=== PATIENT | male | born 1960 | race African-American/Black ===

== ENCOUNTER 2017-07-19 01:27 | Emergency (ER) | payer OTHER, SELFPAY ==
--- NOTE | 2017-07-19 01:28 | DI.US.S_ITS ---
PROCEDURE: US SCROTUM INDICATIONS: Left testicular swelling TECHNIQUE: Real-time scanning was performed of the scrotum and testicles, with image documentation. Color and pulse Doppler interrogation was performed of both testicles. COMPARISON: None. 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 Normal testicular vascularity. Epididymis is normal in overall size and morphology. No hydrocele or varicoceles. Overlying scrotal skin is normal in thickness. Left: Testicle is normal in size at 2.4 x 3.0 x 3.3 cm, and homogeneous in echotexture. Left testicle is relatively hypervascular. Epididymis is normal in overall size and morphology. No hydrocele. Prominent varicocele. Overlying scrotal skin is normal in thickness. Within the scrotum inferior to the left testicle is a rounded, solid avascular mass measuring 12 x 13 x 13 mm. Doppler: Color and pulse Doppler demonstrate normal and symmetric arterial flow in both testicles. IMPRESSION: 1. No evidence of testicular torsion. 2. Left varicocele. 3. Mild hyperemia left testicle compatible with orchitis. 4. Solid intrascrotal mass inferior to the left testicle, etiology indeterminate. Urology consult suggested. Findings are concordant with the preliminary report. Dictated by: Mainor Flower M.D. on 07/19/2017 at 7:44 Approved by: Mainor Flower M.D. on 07/19/2017 at 7:50
--- NOTE | 2017-07-19 01:29 | ED_ITS ---
HPI - Male Genitourinary General Chief complaint: Urogenital-Male Stated complaint: lower left back pain/left testicle swollen Time Seen by Provider: 07/19/17 01:28 Source: patient Mode of arrival: ambulatory Limitations: no limitations History of Present Illness HPI Narrative: 56-year-old male here for evaluation of approximately 4 days of worsening left testicular pain and lower back pain. Patient denies any urinary symptoms. He states that it got to the point this evening where he was having trouble working and lifting knots were brought him into the emergency department. Patient denies any prior history of urinary tract infections. Had a history of a sexually transmitted disease approximately 1 year ago was treated for that. He is circumcised. Is sexually active. No skin changes. No bowel symptoms. Related Data Previous Rx's Medication Instructions Recorded doxycycline hyclate 100 mg PO BID 14 Days #28 tab 07/19/17 Allergies Allergy/AdvReac Type Severity Reaction Status Date / Time No Known Drug Allergies Allergy Verified 07/19/17 03:45 Review of Systems Constitutional Denies chills, Denies fever(s), Denies lethargy and Denies weakness ENT Ears, Nose, Mouth, and Throat: Denies vertigo and Denies dizziness Cardiovascular Denies chest pain, Denies irregular heart rhythm, Denies lightheadedness, Denies palpitations, Denies dyspnea, Denies dyspnea on exertion and Denies orthopnea Respiratory Denies cough, Denies dyspnea, Denies dyspnea on exertion and Denies wheezing Gastrointestinal Gastrointestinal: Denies constipation, Denies diarrhea, Denies nausea and Denies vomiting Genitourinary Denies hematuria, Denies difficulty urinating, Denies genital lesions, Reports genital pain, Denies dysuria, Denies penile discharge, Reports scrotal swelling , Reports testicular mass, Reports testicular pain, Denies urinary frequency, Denies urinary incontinence and Denies urinary urgency Musculoskeletal Denies abnormal gait, Reports back pain, Denies myalgias, Denies arthralgias, Denies muscle cramps and Denies muscle weakness Integumentary/Breasts Denies pruritus, Denies lesions, Denies rash and Denies skin pain Neurologic Denies abnormal gait, Denies behavioral changes, Denies confusion, Denies vertigo, Denies dizziness and Denies weakness Psychiatric Denies behavioral changes and Denies confusion Endocrine Denies palpitations Hematologic/Lymphatic Denies easy bruising Allergic/Immunologic Denies wheezing PFSH Family History Mother Age: 74 Essential hypertension Exam Initial Vital Signs Initial Vital Signs: Vital Signs Temperature 99.6 F 07/19/17 01:52 Pulse Rate 95 H 07/19/17 01:52 Respiratory Rate 18 07/19/17 01:52 Blood Pressure 151/99 H 07/19/17 01:52 Pulse Oximetry 100 07/19/17 01:52 Const General: cooperative and well developed Nutritional Appearance: well nourished Orientation: alert, awake, oriented x3 and not confused GI Inspection: non-distended Palpation: soft, no hepatosplenomegaly, No guarding, No pulsatile mass and No tender Auscultation: normal bowel sounds General: No CVA tenderness External: normal external exam, circumcised, no erythema, no hernia, no lacerations, no lesions and tenderness Penis: normal penis Scrotum: cremasteric reflex present, scrotal mass on the left (Located separate from the testicle) firm and tender and no scrotal swelling Testes: testicular lie normal, enlarged on the left, epididymal induration on the left, epididymal tenderness on the left, no testicular mass, testicular tenderness on the left and normal testicular lie Skin General: no rashes or lesions noted, No jaundice and No petechiae Extrem General: full ROM, no clubbing, cyanosis or edema, no pedal edema and no calf tenderness Course Orders Ordered: ED Orders 07/19/17 01:28 US scrotum Stat 07/19/17 01:45 Urinalysis and Microscopic Stat Discontinued Medications Ceftriaxone Sodium (Rocephin) 250 mg IM NOW ONE Stop: 07/19/17 03:39 Vital Signs - 8 hr 07/19/17 01:52 Temperature 99.6 F Pulse Rate 95 H Respiratory Rate 18 Blood Pressure 151/99 H Pulse Oximetry 100 MDM - Male Genitourinary Lab Data Attestation: I reviewed the patient's lab results. Lab Results 07/19/17 Range/Units 01:45 Urine Color Yellow Urine Appearance Clear Urine pH 6.5 (4.5-8.0) Ur Specific [place] 1.010 (1.000-1.035) Urine Protein Negative (Negative) Urine Glucose (UA) Negative (Normal) g/dL Urine Ketones Negative (NEGATIVE) Urine Occult Blood Negative (Negative) Urine Nitrate Negative (Negative) Urine Bilirubin Negative (NEGATIVE) Urine Urobilinogen 2.0 H (0.2) E.U./dL Ur Leukocyte Esterase Negative (NEGATIVE) Urine RBC None seen (0-5/HPF) Urine WBC None seen (0-5/HPF) Urine Bacteria None seen (None) Ur Culture Indicated? Cult not indicated Micro UA Comment Microscopic normal Imaging Data Testicular ultrasound: Radiologist's impression: No testicular torsion Increased vascularity left testes was compared with the right compatible with left orchitis. Prominent varicocele 1.3 x 1.2 x 1.3 cm solid nonvascular extratesticular mass inferior to the left testes of uncertain etiology. Urology consult recommended MDM Narrative Medical decision making narrative: Patient without signs of testicular torsion on ultrasound. Urinalysis negative for urinary tract infection. Does have a varicocele on the left. Does have physical exam and ultrasound consistent with orchitis. Had a long discussion with the patient regarding this. He states that he does have 1 sexual partner however has had a sexually transmitted disease in the past and states that it is possible that he could have another 1 now. We did discuss options to include presumptively treating him here in the emergency department for gonorrhea and chlamydia or running a culture which will take some time to come back. Patient states that he would just go ahead and treat now. He was given a shot of Rocephin here in the emergency department. Will also send home with a prescription for doxycycline. I suspect that his lower back pain is secondary to this orchitis. There is some concern with back pain and genital issues of conditions such as prostatitis. I did not do a rectal exam on him today however the doxycycline and Rocephin should cover for any type of infection such as this. Patient was also informed of the solid mass noted on the ultrasound. We did discuss that we are uncertain of the etiology of this finding. We did discuss that it is important for him to talk with his primary doctor regarding this ultrasound finding and to obtain a referral to see Urology. Patient did expressed understanding of this. He was given return precautions. Discharge Plan Departure Patient Disposition: Home, Self-Care Clinical Impression: Orchitis, Scrotal mass Instructions: DI for Orchitis Activity Restrictions/Additional Instructions: Would recommend that you take all of the antibiotics likely discussed. You do need to talk with your primary doctor regarding the findings on the ultrasound today and to discuss the indications for a consult to see Urology. Would recommend that you wear supportive clothing for the next couple days. You can take anti-inflammatories such as Motrin/ibuprofen/Naprosyn as directed. You can buy this [id number]. Return to the emergency department for any new or worsening symptoms Prescriptions: New doxycycline hyclate 100 mg tablet 100 mg PO BID 14 Days Qty: 28 RF: 0
[2017-07-19 01:52] VITALS: BP 151/99; PULSE 95; RESP 18; TEMP 37.6; O2SAT 100; BMI 23.2
[2017-07-19 02:06] LABS: Bacteria Urine None Seen; RBC Urine None Seen (0-5/HPF); WBC Urine None Seen (0-5/HPF)
[2017-07-19 02:07] LABS: Appearance Urine UA CLEAR; Bilirubin Urine UA NEGATIVE (NEGATIVE); Color Urine UA YELLOW; Glucose Urine UA NEGATIVE (Normal); Ketones Urine UA NEGATIVE (NEGATIVE); Leukocyte Esterase Urine UA NEGATIVE (NEGATIVE); Nitrite Urine UA Negative (Negative); Occult Blood Urine UA NEGATIVE (Negative); Protein Urine UA NEGATIVE (Negative); pH Urine UA 6.5 (4.5-8.0)
[2017-07-19 02:18] LABS: Culture Indicated Urine Cult Not Indicated; Urine Comments Microscopic Normal
[2017-07-19] MEDS: cefTRIAXone 500 MG VIAL 250 MG IM (04:02)
[2017-07-19 04:24] VITALS: BP 122/88; PULSE 86; RESP 18; TEMP 37.2; O2SAT 99
== END 2017-07-19 04:25 | disposition home or self-care (01) ==
PROVIDERS: Emergency Provider Emergency Medicine
DX: N45.2 Orchitis (principal); N50.9 Disorder of male genital organs, unspecified
CPT/HCPCS: 76870; 81001; 81003; 96372; 99283; 99284; J0696

== ENCOUNTER → 2017-12-17 07:25 | Outpatient (CLI) | payer OTHER, SELFPAY ==
--- NOTE | 2017-12-17 | DI.US.S_ITS ---
PROCEDURE: US SCROTUM INDICATIONS: HX SCROTAL MASS TECHNIQUE: Real-time scanning was performed of the scrotum and testicles, with image documentation. Color and pulse Doppler interrogation was performed of both testicles. COMPARISON: [facility], US SCROTUM, 07/19/2017, 2:07. FINDINGS: Right: Testicle is normal in size at 4.4 x 1.9 x 3.1 cm, and homogenous in echotexture. Epididymis is normal in overall size and morphology. No hydrocele or varicoceles. Overlying scrotal skin is normal in thickness. Left: Testicle is normal in size at 3.6 x 2.1 x 3.0 cm, and homogeneous in echotexture. Epididymis is normal in overall size and morphology. No hydrocele or varicoceles. Overlying scrotal skin is normal in thickness. Previously described mass inferior to the left testicle is not visualized on the current exam. Doppler: Color and pulse Doppler demonstrate normal and symmetric arterial flow in both testicles. IMPRESSION: 1. Normal appearance of the testicles bilaterally. 2. Today's study demonstrating no mass inferior to the left testis. Dictated by: Butch Valencia [facility] Interpreted: Azael Prado MD on 12/17/2017 at 11:30 Approved by: Azael Prado M.D. on 12/17/2017 at 12:47
== END ==
PROVIDERS: Visit Provider Urology
DX: N50.9 Disorder of male genital organs, unspecified (principal)
CPT/HCPCS: 76870

== ENCOUNTER → 2019-03-16 19:20 | Outpatient (ROUT) | payer OTHER, SELFPAY ==
[2019-03-16 19:58] LABS: BUN Creatinine Ratio 14.4 (6-22); Blood Urea Nitrogen 13 mg/dL (9-20); Calcium 9.6 mg/dL (8.4-10.2); Carbon Dioxide 26 mmol/L (22-32); Chloride 107 mmol/L (98-107); Cholesterol 179 mg/dL (140-199); Estimated Glomerular Filt Rate > 60.0 mL/min (>60); Glucose 96 mg/dL (70-100); HDL Cholesterol 42 mg/dL (40-60); HEMOLYSIS < 15 (0-50); LDL Cholesterol Calculated 117 mg/dL (<100); Sodium 142 mmol/L (137-145); Triglycerides 98 mg/dL (35-150)
[2019-03-21 14:01] LABS: PSA, Total 0.9 ng/mL (< 4.1)
== END ==
PROVIDERS: Visit Provider Internal Medicine
DX: Z13.220 Encounter for screening for lipoid disorders (principal); R35.0 Frequency of micturition; Z12.5 Encounter for screening for malignant neoplasm of prostate
CPT/HCPCS: 80048; 80061; 84153; 84154

== ENCOUNTER 2019-08-12 22:27 | Emergency (ER) | payer OTHER, SELFPAY ==
[2019-08-12 22:35] VITALS: BP 178/89; PULSE 78; RESP 20; TEMP 37.1; O2SAT 98
[2019-08-12 22:39] VITALS: BP 178/89; PULSE 78; TEMP 37.1; O2SAT 98
--- NOTE | 2019-08-12 22:41 | ED.GENADULT ---
HPI - General Adult General Chief complaint: Dental/Oral Stated complaint: tooth ache x3 days Time Seen by Provider: 08/12/19 22:30 Source: patient Mode of arrival: Ambulatory Limitations: no limitations History of Present Illness HPI narrative: 58-year-old male here for evaluation of right upper back tooth pain. He states that has been sore for the past several days. States that he does not currently have a dentist. Has tried some ibuprofen for the symptoms prior to arrival. No fevers. No problems breathing. Related Data Previous Rx's Medication Instructions Recorded penicillin V potassium 500 mg PO QID 7 Days #28 tab 08/12/19 Allergies Allergy/AdvReac Type Severity Reaction Status Date / Time No Known Drug Allergies Allergy Verified 07/19/17 03:45 Review of Systems Constitutional Constitutional: Denies chills and Denies fever(s) ENT Ears, Nose, Mouth, and Throat: Denies vertigo, Denies otalgia and Denies facial pain Comments: Right upper dental Cardiovascular Cardiovascular: Denies chest pain Integumentary/Breasts Skin/Breast: Denies lesions and Denies rash Neurologic Neurologic: Denies vertigo Hematologic/Lymphatic Hematologic/Lymphatic: Denies easy bleeding and Denies easy bruising Patient History Medical History (Updated 08/13/19 @ 01:09 by Mitchel Cobian DO) Gonorrhea (Inactive) Family History Mother Age: 76 Essential hypertension Social History Smoking Status: Never smoker Exam Initial Vital Signs Initial Vital Signs: Vital Signs Temperature 98.7 F 08/12/19 22:35 Pulse Rate 78 08/12/19 22:35 Respiratory Rate 20 08/12/19 22:35 Blood Pressure 178/89 H 08/12/19 22:35 Pulse Oximetry 98 08/12/19 22:35 Const General: cooperative and comfortable Limitations: mental status not altered HENMT Head: normal to inspection and normocephalic Ears: TM's normal bilaterally Nose: external nose normal Face and sinus: normal facial exam Mouth: oral mucosae normal Teeth and gingiva: fair dentition Throat: posterior oropharynx normal Neck Lymphatic: No lymphadenopathy Skin Lesions: no lesions Rashes: no rashes Neuro General: patient alert and patient awake Extrem General: capillary refill normal Psych Appearance: grossly normal and well kempt Course Orders Ordered: Discontinued Medications Penicillin V Potassium (Veetids) 500 mg PO NOW ONE Stop: 08/12/19 22:49 Last Admin: 08/12/19 22:53 Dose: 500 mg Documented by: RODRIGO Vital Signs Vital signs: Vital Signs - 8 hr 08/12/19 22:35 08/12/19 22:39 Temperature 98.7 F 98.7 F Pulse Rate 78 78 Respiratory Rate 20 Blood Pressure 178/89 H 178/89 H Pulse Oximetry 98 98 Medical Decision Making MDM Narrative Medical decision making narrative: Patient's physical exam is relatively unremarkable except for obvious dental disease. There is now defined abscess seen or felt on the exam that would require incision and drainage here in the ER. Will start the patient on antibiotics. Is given his 1st dose here. Is given a prescription for the remainder. Informed him that he should follow up with a dentist. He is given information regarding this. Is given return precautions. Expressed understanding and agreement. Discharge Plan Departure Patient Disposition: Home Clinical Impression: Pain, dental Discharge Date/Time: 08/12/19 22:57 Instructions: DI for Dental Pain Activity Restrictions/Additional Instructions: It is important that you make contact and follow up with a dentist. Your 1st dose of antibiotics was given here in the ER. Your next dose will be the morning of 08/13/19. Contact your primary provider for follow-up. Return to the emergency department for any new or worsening symptoms Prescriptions: New penicillin V potassium 500 mg tablet 500 mg PO QID 7 Days Qty: 28 RF: 0
[2019-08-12] MEDS: PENICILLIN VK 250 MG TABLET 500 MG PO (22:53)
== END 2019-08-12 22:57 | disposition home or self-care (01) ==
PROVIDERS: Emergency Provider Emergency Medicine
DX: K08.89 Other specified disorders of teeth and supporting structures (principal)
CPT/HCPCS: 99282; 99283

== ENCOUNTER → 2020-05-21 09:09 | Outpatient (CLI) | payer OTHER, SELFPAY ==
[2020-05-21] MEDS: COVID-19 VACC #1, MRNA(MOD) 100 MCG/0.5 ML VIAL IM (09:33)
== END ==
PROVIDERS: Visit Provider Internal Medicine
DX: Z23 Encounter for immunization (principal)
CPT/HCPCS: 0011A; 91301

== ENCOUNTER → 2020-06-20 10:43 | Outpatient (CLI) | payer OTHER, SELFPAY ==
[2020-06-20] MEDS: COVID-19 VACC #2, MRNA(MOD) 100 MCG/0.5 ML VIAL IM (10:55)
== END ==
PROVIDERS: Visit Provider Internal Medicine
DX: Z23 Encounter for immunization (principal)
CPT/HCPCS: 0012A; 91301

== ENCOUNTER 2021-09-21 09:15 | Emergency (ER) | payer OTHER, SELFPAY ==
[2021-09-21 09:22] VITALS: BP 165/90; PULSE 60; RESP 16; TEMP 37.2; O2SAT 97; BMI 23.0
[2021-09-21 09:40] LABS: Appearance Urine UA CLEAR; Bilirubin Urine UA NEGATIVE (NEGATIVE); Color Urine UA YELLOW; Glucose Urine UA NEGATIVE (Negative); Ketones Urine UA NEGATIVE (NEGATIVE); Leukocyte Esterase Urine UA 3+ (NEGATIVE); Nitrite Urine UA NEGATIVE (Negative); Occult Blood Urine UA 1+ (Negative); Protein Urine UA NEGATIVE (Negative); Specific Gravity Urine UA <=1.005 (1.000-1.035); Urobilinogen Urine UA 0.2 E.U./dL (0.2); pH Urine UA 5.5 (4.5-8.0)
[2021-09-21 09:41] LABS: Bacteria Urine None Seen; Culture Indicated Urine Specimen Cultured; RBC Urine 5-10/HPF (0-5/HPF); Squamous Epithelial Cell Urine 1-5 /HPF (0-5/HPF); WBC Urine >100/HPF (0-5/HPF)
--- NOTE | 2021-09-21 10:01 | ED_ITS ---
HPI - Male Genitourinary General Chief complaint: Urogenital-Male Stated complaint: might have STD Time Seen by Provider: 09/21/21 09:27 History of Present Illness HPI Narrative: Patient is a healthy 61-year-old male who presents with discharge from his penis through last 2 days. She has a does hurt when he urinates. He previously had infection of chlamydia. Reports having sex with females. He says this is not a new partner. No other symptoms. He denies any rash. He denies any testicular pain or swelling Related Data Previous Rx's Medication Instructions Recorded doxycycline hyclate 100 mg capsule 100 mg PO BID #14 caps 09/21/21 Allergies Allergy/AdvReac Type Severity Reaction Status Date / Time No Known Drug Allergies Allergy Verified 07/19/17 03:45 Review of Systems Review of Systems Narrative: GENERAL: Denies chills,fever HEENT: Denies throat pain RESPIRATORY: Denies dyspnea, cough, wheezing CARDIOVASCULAR: Denies chest pain, palpitations : See HPI GASTROINTESTINAL: Denies nausea, vomiting MUSCULOSKELETAL: Denies extremity pain, injury SKIN: No rash, no laceration, no pruritus NEUROLOGIC: Denies weakness, dizziness, headache, numbness 8 point review of systems is negative except for those stated above and HPI Patient History Medical History Gonorrhea Family History Mother Age: 78 Essential hypertension Social History Smoking Status: Never smoker Smoking Status: Never smoker alcohol intake frequency: a few times a week Substance Use Type: does not use Exam Initial Vital Signs Initial Vital Signs: Vital Signs Temperature 98.9 F 09/21/21 09:22 Pulse Rate 60 09/21/21 09:22 Respiratory Rate 16 09/21/21 09:22 Blood Pressure 165/90 H 09/21/21 09:22 Pulse Oximetry 97 09/21/21 09:22 Oxygen Delivery Method 09/21/21 09:22 GENERAL: Very pleasant well-appearing 61-year-old male CARDIOVASCULAR: peripheral pulses in tact, cap refill <2 sec RESPIRATORY: No respiratory distress, speaks in full sentences without difficulty EXTREMITIES: Normal range of motion, no clubbing or edema. Neurovascularly intact NEUROLOGICAL: Cranial nerves II through XII grossly intact. Normal gait and speech. SKIN: Warm, dry, no petechiae, no rashes or lesions. Course Orders Ordered: ED Orders 09/21/21 09:22 Chlamydia Gonorrhea PCR -URINE Stat Urinalysis and Microscopic Stat Urine Culture Stat Discontinued Medications Ceftriaxone Sodium (Ceftriaxone 1,000 Mg Vial) 500 mg IM NOW ONE Stop: 09/21/21 11:34 Last Admin: 09/21/21 11:44 Dose: 500 mg Documented By: GEETA Lidocaine HCl (Lidocaine 1% (Pf) 5 Ml) 2.1 ml INJ NOW ONE Stop: 09/21/21 11:34 Last Admin: 09/21/21 11:44 Dose: 2.1 ml Documented By: GEETA Vital Signs Vital signs: Vital Signs - 8 hr 09/21/21 09:22 Temperature 98.9 F Pulse Rate 60 Respiratory Rate 16 Blood Pressure 165/90 H Pulse Oximetry 97 Oxygen Delivery Method Room Air MDM - Male Genitourinary Lab Data Labs: Lab Results 09/21/21 09/21/21 Range/Units 09:22 09:22 Urine Color Yellow Urine Appearance Clear Urine pH 5.5 (4.5-8.0) Ur Specific [place] <=1.005 (1.000-1.035) Urine Protein Negative (Negative) Urine Glucose (UA) Negative (Negative) g/dL Urine Ketones Negative (NEGATIVE) Urine Occult Blood 1+ H (Negative) Urine Nitrate Negative (Negative) Urine Bilirubin Negative (NEGATIVE) Urine Urobilinogen 0.2 (0.2) E.U./dL Ur Leukocyte Esterase 3+ H (NEGATIVE) Urine RBC 5-10/hpf H (0-5/HPF) Urine WBC >100/hpf H (0-5/HPF) Ur Squamous Epith Cells 1-5 /hpf (0-5/HPF) Urine Bacteria None seen (None) Ur Culture Indicated? Specimen cultured Ur Chlamydia DNA (PCR) Detected H N gonorrhoeae DNA (PCR) Detected H MDM Narrative Medical decision making narrative: Patient found to be positive for both gonorrhea and chlamydia. Sex education about condoms and treating partner. Along with follow-up and testing for other diseases such as HIV and hepatitis. Discharge Plan Departure Patient Disposition: Home Clinical Impression: Gonorrhea, Chlamydia Instructions: Chlamydia, DI for Gonorrhea Activity Restrictions/Additional Instructions: *You have been diagnosed with gonorrhea and chlamydia *What to do: Please with stain from having intercourse until your symptoms have completely cleared. your partner will also need to be treated. I also encourguido amaro due to be tested with her primary care provider for HIV and hepatitis *Continue to take medications as directed Doxycycline 100 mg twice a day for 7 days [place] *Follow up with your primary care provider in 2-3 days or call [phone] *Return to ER if you should have fever rash symptoms not resolved or any new, worsening or concerning symptoms Prescriptions: New doxycycline hyclate 100 mg capsule 100 mg PO BID Qty: 14 0RF Visit Report Forms: Patient Portal/API
[2021-09-21 11:00] LABS: Urine N gonorrhoeae DETECTED
[2021-09-21 11:19] LABS: Urine Chlamydia DETECTED
[2021-09-21] MEDS: LIDOCAINE 1% (PF) 5 ML 2.1 ML INJ (11:44)
[2021-09-21] MEDS: cefTRIAXone 1,000 MG VIAL 500 MG IM (11:44)
== END 2021-09-21 11:54 | disposition home or self-care (01) ==
PROVIDERS: Emergency Provider Emergency Medicine
DX: A74.9 Chlamydial infection, unspecified (principal); A54.09 Other gonococcal infection of lower genitourinary tract
CPT/HCPCS: 81001; 87077; 87086; 87491; 87591; 96372; 99283; J0696

== ENCOUNTER 2023-02-28 21:58 | Emergency (ER) | payer OTHER, SELFPAY ==
[2023-02-28 22:01] VITALS: BP 122/78; PULSE 76; RESP 16; TEMP 36.6; O2SAT 97; BMI 23.5
--- NOTE | 2023-02-28 22:11 | ED_ITS ---
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 Patient states he started getting some redness and swelling just to the right below his navel in the past week. Patient states it is become tender and painful. No drainage. No fevers. He has had 1 prior similar episode in the past on his leg remotely. Patient states no other issues. He does note he drives a lot of trucks 1 of them has been quite bouncy and has been rubbing on that area lot. States no daily prescriptions. No known drug allergies. No tobacco, occasional alcohol, no recreational or IV drugs. Gets primary care through the [facility]. Related Data Previous Rx's Medication Instructions Recorded doxycycline hyclate 100 mg capsule 100 mg PO BID #14 caps 09/21/21 doxycycline hyclate 100 mg tablet 100 mg PO BID #20 tabs 02/28/23 Allergies Allergy/AdvReac Type Severity Reaction Status Date / Time No Known Drug Allergies Allergy Verified 07/19/17 03:45 Review of Systems Review of Systems ROS Unobtainable: All systems reviewed & are unremarkable except as noted in HPI and below Patient History Medical History Gonorrhea Family History Mother Age: 79 Essential hypertension Social History Smoking Status: Never smoker Smoking Status: Never smoker alcohol intake frequency: holidays/special occasions only Substance Use Type: does not use Exam Narrative Exam Narrative: GENERAL: Alert and oriented x three, well-appearing in mild distress. HEENT: Head normocephalic, atraumatic, EOMI, pupils reactive, face symmetric, moist mucous membranes NECK: Supple, full range of motion CARDIOVASCULAR: Regular rate and rhythm without murmurs, rubs or gallops. RESPIRATORY: Breath sounds equal bilaterally, no wheezes rales or rhonchi. ABDOMEN: Soft, patient has an area 3 cm x 2 cm of erythema that is slightly raised with 1 small punctate area white discoloration at the 7 o'clock position from his umbilicus. It is quite indurated. Tender. No abdominal tenderness surrounding the. Normoactive bowel sounds all 4 quadrants. No guarding or rebound, rigidity, no mass : No CVA tenderness EXTREMITIES: Normal range of motion, no clubbing or edema. Neurovascularly intact NEUROLOGICAL: Cranial nerves II through XII grossly intact. Moving all extremities SKIN: Warm, dry, no petechiae, no rashes or lesions. Initial Vital Signs Initial Vital Signs: Vital Signs Temperature 98 F 02/28/23 22:01 Pulse Rate 76 02/28/23 22:01 Respiratory Rate 16 02/28/23 22:01 Blood Pressure 122/78 02/28/23 22:01 Pulse Oximetry 97 02/28/23 22:01 Oxygen Delivery Method Room Air 02/28/23 22:01 Course Orders Ordered: Discontinued Medications Doxycycline Hyclate (Doxycycline Hyclate 100 Mg Tablet) 100 mg PO NOW ONE Stop: 02/28/23 22:21 Last Admin: 02/28/23 22:24 Dose: 100 mg Documented By: JC Vital Signs Vital signs: Vital Signs - 8 hr 02/28/23 22:01 Temperature 98 F Pulse Rate 76 Respiratory Rate 16 Blood Pressure 122/78 Pulse Oximetry 97 Oxygen Delivery Method Room Air MDM - Skin/Abscess/Foreign Bdy MDM Narrative Medical decision making narrative: Bedside ultrasound does not show any fluid collection. Discussed with patient we will start oral antibiotic, warm compresses to the affected area. Suspect either from rubbing or possibly ingrown hair patient has developed cellulitis and likely the start of the early abscess. Discussed return precautions signs and symptoms to watch for. Discharge Plan Departure Patient Disposition: Home Clinical Impression: Abdominal wall cellulitis Instructions: DI for Cellulitis -- Adult Activity Restrictions/Additional Instructions: You have an area of cellulitis on her abdomen. There does not appear to be an abscess on ultrasound yet but is likely developing. You may take Tylenol up to a 1000 mg every 6 hours and/or ibuprofen up to 600 mg every 6 hours for pain Use warm compresses or hot soaks to the affected area 3-4 times daily for 10 minutes Take antibiotics until completed. Prescription was sent to [facility] [place]. Please return for fevers, if redness swelling, increasing pain, nausea or vomiting or other new or concerning changes. Prescriptions: New doxycycline hyclate 100 mg tablet 100 mg PO BID Qty: 20 0RF No Action doxycycline hyclate 100 mg capsule 100 mg PO BID Qty: 14 0RF Stand Alone Forms: Patient Portal/API
[2023-02-28] MEDS: DOXYCYCLINE HYCLATE 100 MG TABLET PO (22:24)
== END 2023-02-28 22:25 | disposition home or self-care (01) ==
PROVIDERS: Emergency Provider Emergency Medicine
DX: L03.311 Cellulitis of abdominal wall (principal)
CPT/HCPCS: 99283

== ENCOUNTER 2023-03-04 02:25 | Emergency (ER) | payer OTHER, SELFPAY ==
--- NOTE | 2023-03-04 02:32 | ED_ITS ---
HPI - General Adult General Chief complaint: Skin/Abscess/Foreign Body Stated complaint: blister on abd reval from previous visit Time Seen by Provider: 03/04/23 02:25 History of Present Illness HPI narrative: 62-year-old male presents for PT evaluation of an infectious process on his ab domen. He was seen and evaluated a few days ago and diagnosed with cellulitis and placed on antibiotics. He has been taking the antibiotics as directed. Denies systemic complaints such as fever, chills nor nausea or vomiting. He states there is less redness but the swelling he is become more pronounced and there is a small amount of drainage. Related Data Previous Rx's Medication Instructions Recorded doxycycline hyclate 100 mg capsule 100 mg PO BID #14 caps 09/21/21 doxycycline hyclate 100 mg tablet 100 mg PO BID #20 tabs 02/28/23 Allergies Allergy/AdvReac Type Severity Reaction Status Date / Time No Known Drug Allergies Allergy Verified 07/19/17 03:45 Review of Systems Review of Systems Narrative: GENERAL: See HPI HEENT: Denies sinus pain, ear pain, sore throat, difficulty swallowing, dizziness. RESPIRATORY: Denies dyspnea, cough, wheezing, hemoptysis, sputum. CARDIOVASCULAR: Denies chest pain, palpitations, orthopnea, edema, GASTROINTESTINAL: Denies nausea, vomiting, abdominal pain, diarrhea, constipation, melena. : Denies dysuria, frequency, incontinence, hematuria, urinary retention. MUSCULOSKELETAL: denies weakness, joint pain, or bony pain SKIN: See HPI NEUROLOGIC: Denies weakness, headache, numbness, change in speech, confusion, seizures, incoordination. PSYCHIATRIC: No concerning psychosocial issues. 12 point review of systems is negative except for those stated above Patient History Medical History Gonorrhea Family History Mother Age: 80 Essential hypertension Social History Smoking Status: Never smoker Smoking Status: Never smoker alcohol intake frequency: holidays/special occasions only Substance Use Type: does not use Exam Narrative Exam Narrative: GEN: AOx3 and in mild distress EYES: Pupils are equal, round, and reactive to light and accommodation. Extraoccular muscles are intact bilaterally. There is no subconjunctival hemorrhage or exudate. CHEST: Lungs are clear to auscultation bilaterally and free of wheezes, rales, or rhonchi. Heart rate is regular rhythm, there are no murmurs, clicks, rubs, or gallops. There is no chest wall tenderness. ABD: Abdomen is soft and nontender. There is no guarding or rebound. Bowel sounds are normal in all 4 quadrants. There is no mass or organomegaly. EXT: Full painless ROM of all extremities with no loss of sensation or strength. SKIN: 2 x 3 cm area of erythema, induration and minimal fluctuance with small central draining portion, consistent with cutaneous abscess. There is no widespread erythema, lymphangitis, no pain elsewhere on the belly suggesting a deeper process Initial Vital Signs Initial Vital Signs: Vital Signs Temperature 97.6 F 03/04/23 02:46 Pulse Rate 57 L 03/04/23 02:46 Respiratory Rate 16 03/04/23 02:46 Blood Pressure 150/88 H 03/04/23 02:46 Pulse Oximetry 100 03/04/23 02:46 Oxygen Delivery Method Room Air 03/04/23 02:46 Procedures Abscess I/D I&D #1: Site: abdomen Local Anesthetic: lidocaine 1% Amount of anesthesia used (mL): 4 Technique: incised with #11 blade Amount of fluid expressed (mL): 10 Irrigation: Yes Packing used?: none Complications: pain Course Orders Ordered: Discontinued Medications Lidocaine/Epinephrine (Lidocaine 1% W/Epi) 4 ml INJ INTRA-OP ONE Stop: 03/04/23 03:09 Last Admin: 03/04/23 02:40 Dose: 4 ml Documented By: DEYSI Medical Decision Making [facility] Narrative Medical decision making narrative: [62] year old patient presents with worsening abscess Multiple etiologies for patient's symptoms considered including, but not limited to: [Cutaneous abscess versus deeper infectious process] Prior Charts reviewed in our EMR Primary Historian: patient Labs reviewed and interpreted by myself: Wound culture sent Imaging reviewed: Discussed the possible utility of imaging in the form of ultrasound versus CT to evaluate for possible deeper infectious process, we sure the opinion that it is extremely unlikely to be of utility given his reassuring history and physical exam. Findings and discharge diagnosis discussed with patient/family followed by verbalization of understanding Return precautions discussed with patient/family whom verbalize understanding of diagnosis and plan Discharge Plan Departure Patient Disposition: Home Clinical Impression: Abdominal wall cellulitis, Abscess Instructions: DI for Incision and Drainage of a Skin Abscess Activity Restrictions/Additional Instructions: *You have been diagnosed with [abdominal wall abscess with minimal surrounding cellulitis.] *What to do: *Please continue to take your regular medications as directed. *Please follow up with your primary care provider in 2-3 days, call for an appointment. Let them know you were seen in the Emergency Department and that we ask that you be seen in follow up. We will electronically transmit a record of today's note if your PCP is in our system *If you do not have a primary care provider please contact the [facility] Resource line at [phone]. They will ask some questions about your medical history and help get you set up with a doctor in the community. *Return to Emergency Department if you should have any new, worsening or concerning symptoms, such as [fever greater than 101 F, shaking chills, worsening pain, persistent vomiting or other bothersome symptoms] Prescriptions: No Action doxycycline hyclate 100 mg tablet 100 mg PO BID Qty: 20 0RF doxycycline hyclate 100 mg capsule 100 mg PO BID Qty: 14 0RF Stand Alone Forms: Patient Portal/API
[2023-03-04] MEDS: LIDOCAINE 1% W/EPI 4 ML INJ (02:40)
[2023-03-04 02:46] VITALS: BP 150/88; PULSE 57; RESP 16; TEMP 36.4; O2SAT 100; BMI 23.5
[2023-03-04 02:51] VITALS: BP 137/84; PULSE 65; RESP 14; TEMP 36.6; O2SAT 99
== END 2023-03-04 03:03 | disposition home or self-care (01) ==
PROVIDERS: Emergency Provider Emergency Medicine
DX: L03.311 Cellulitis of abdominal wall (principal); L02.211 Cutaneous abscess of abdominal wall
CPT/HCPCS: 10060; 99282; 99283

== ENCOUNTER 2023-12-18 18:15 | Emergency (ER) | payer OTHER, SELFPAY ==
[2023-12-18 18:25] VITALS: BP 131/76; PULSE 65; RESP 18; TEMP 36.9; O2SAT 98; BMI 24.3
--- NOTE | 2023-12-18 19:00 | ED_ITS ---
HPI - Eye Problem General Chief complaint: Eye Problems Stated complaint: redness and itchy of both eyes Time Seen by Provider: 12/18/23 19:00 Source: patient Mode of arrival: Ambulatory History of Present Illness HPI Narrative: Patient is a 63-year-old male without any significant past medical history presents to the emergency department for bilateral eye itchiness redness ongoing persistent for the past few days. Denies any visual disturbances does not wear any contacts or glasses at baseline. He denies any trauma or falls denies any headaches denies any other symptoms at this time. Related Data Previous Rx's Medication Instructions Recorded doxycycline hyclate 100 mg capsule 100 mg PO BID #14 caps 09/21/21 doxycycline hyclate 100 mg tablet 100 mg PO BID #20 tabs 02/28/23 erythromycin 5 mg/gram (0.5 %) eye 0.5 inch ophthalmic (eye) QID 5 12/18/23 ointment days #3.5 grams Allergies Allergy/AdvReac Type Severity Reaction Status Date / Time No Known Drug Allergies Allergy Verified 07/19/17 03:45 Review of Systems Review of Systems Narrative: General: Denies fever, chills, weight loss HEENT: Positive eye redness, itchiness Denies headache, eye drainage, head trauma, sore throat, voice change Cardiovascular: Denies any chest pain, palpitations, shortness of breath, tachycardia Respiratory: Denies any shortness of breath, cough, wheeze, stridor GI/: Denies any abdominal pain, nausea, vomiting, diarrhea, bright red blood per rectum, melanotic stools, urinary frequency, urinary retention, dysuria, hematuria MSK: Denies any joint pain, muscle pains, swelling Skin: Denies any rashes, lesions, discoloration Neuro: Denies any headache, lightheadedness, dizziness, fainting, weakness Psych: Denies SI/HI Patient History Medical History Gonorrhea Family History Mother Age: 80 Essential hypertension Social History Smoking Status: Never smoker Smoking Status: Never smoker alcohol intake frequency: holidays/special occasions only Substance Use Type: does not use Exam Narrative Exam Narrative: General: Cooperative, comfortable, well-developed, not in acute distress HEENT: Normocephalic, atraumatic, PERRLA, normal sclera, eyelids normal, scattered corneal abrasions noted to the eye with fluorescein stain, negative Krish sign, no other gross deformities noted Neck: Active full range of motion, atraumatic Chest: Normal to inspection, negative crepitus, no overlying erythema ecchymosis Respiratory: Normal respiratory effort, not in acute respiratory distress, clear to auscultation bilaterally negative cough, wheeze, tachypnea, rhonchi, rales Cardiology: Regular rate rhythm negative gallop, murmur, rubs GI/: Normal to inspection, soft, nonrigid, no tenderness to palpation, exam deferred MSK: Full range of active range of motion of all 4 extremities, atraumatic Skin: No rashes lesions noted Neuro: Alert awake oriented x3, moves all 4 extremities spontaneously, cranial nerves intact, able to answer all questions appropriately follows commands appropriately Psych: Cooperative, negative suicidal or homicidal ideations Initial Vital Signs Initial Vital Signs: Vital Signs Temperature 98.4 F 12/18/23 18:25 Pulse Rate 65 12/18/23 18:25 Respiratory Rate 18 12/18/23 18:25 Blood Pressure 131/76 12/18/23 18:25 Pulse Oximetry 98 12/18/23 18:25 Oxygen Delivery Method Room Air 12/18/23 18:25 Course Orders Ordered: Discontinued Medications Erythromycin (Erythromycin Ophth 1 Gm Oint) 1 applic EYE-BOTH NOW ONE Stop: 12/18/23 19:34 Fluorescein Sodium (Fluorescein 1 Mg Strip) 1 mg EYE-BOTH NOW ONE Stop: 12/18/23 19:08 Last Admin: 12/18/23 19:20 Dose: 1 mg Proparacaine HCl (Proparacaine 0.5% Ophth Diana) 1 drops EYE-BOTH NOW ONE Stop: 12/18/23 19:08 Last Admin: 12/18/23 19:20 Dose: 1 drops Vital Signs Vital signs: Vital Signs - 8 hr 12/18/23 18:25 Temperature 98.4 F Pulse Rate 65 Respiratory Rate 18 Blood Pressure 131/76 Pulse Oximetry 98 Oxygen Delivery Method Room Air MDM - Eye Problem Differential Diagnosis Differential diagnosis: Likely corneal abrasion, conjunctivitis and hyphema MDM Narrative Medical decision making narrative: Patient is a 63-year-old male with a history of no significance presents for bilateral eye itchiness redness, states it has been ongoing persistent for the past few days denies any visual changes does not wear contacts does not wear corrective lenses. Patient with normal visual acuity here in the emergency department. Patient on fluorescein exam with scattered minor abrasions most likely secondary to constant eye rubbing. Patient was given erythromycin ointment and was sent home with this, he is instructed to follow up with Ophthalmology and PCP in outpatient setting he was given strict return precautions he is safe for discharge home with outpatient follow up Discharge Plan Departure Patient Disposition: Home Clinical Impression: Corneal abrasion Activity Restrictions/Additional Instructions: Please follow up ophthalmology Please read the discharge instructions sheet carefully and bring all papers to all doctor follow-up visits, as it may contain information that your doctor may want to see. Disease processes change and evolve, if your symptoms worsen or if you develop any new symptoms that are concerning to you please return for evaluation. Your evaluation today does not show any evidence of any life- threatening/serious illnesses requiring admission to the hospital or surgery. Please follow-up with your doctor for re-evaluation in approximately 1 day. Seek immediate medical attention for any worrisome symptoms. Prescriptions: New erythromycin 5 mg/gram (0.5 %) ointment 0.5 inch ophthalmic (eye) QID 5 Days Qty: 3.5 0RF No Action doxycycline hyclate 100 mg tablet 100 mg PO BID Qty: 20 0RF doxycycline hyclate 100 mg capsule 100 mg PO BID Qty: 14 0RF Stand Alone Forms: Patient Portal/API/Survey
[2023-12-18] MEDS: PROPARACAINE 0.5% OPHTH SOL 1 DROPS EYE-BOTH (19:20)
[2023-12-18] MEDS: FLUORESCEIN 1 MG STRIP EYE-BOTH (19:20)
[2023-12-18] MEDS: ERYTHROMYCIN OPHTH 1 GM OINT 1 APPLIC EYE-BOTH (19:43)
[2023-12-18 19:46] VITALS: BP 114/71; PULSE 55; O2SAT 100
== END 2023-12-18 19:51 | disposition home or self-care (01) ==
PROVIDERS: Emergency Provider Student in an Organized Health Care Education/Training Program
DX: S05.02XA Injury of conjunctiva and corneal abrasion without foreign body, left eye, initial encounter (principal); S05.01XA Injury of conjunctiva and corneal abrasion without foreign body, right eye, initial encounter
CPT/HCPCS: 99282